=== PATIENT | male | born 1970 | race Caucasian/White ===

== ENCOUNTER → 2024-11-15 | Outpatient (CLI) | payer OTHER, SELFPAY ==
[2024-11-15 15:06] LABS: Absolute Lymphocyte Count 1.48 X10^3/uL (0.83-4.51); Absolute Neutrophil Count 3.4 X10^3/uL (2.0-7.7); Basophil# 0.04 X10^3/uL; Basophil% 0.7 % (0-1); Eosinophils% 1.8 % (0-5); Hemoglobin 17.7 g/dL (13.0-16.5); Lymphocyte # 1.48 X10^3/ul (0.83-4.51); Mean Corp Hgb Conc 35.4 g/dL (32-36); Mean Corpuscular Hgb 30.4 pg (27.0-32.0); Mean Corpuscular Volume 85.8 fL (80-94); Mean Platelet Vol. 9.8 fl (6.2-12.0); Monocyte% 7.3 % (0-10); NRBC Flagged by Analyzer 0 % (0-5); Neutrophil # 3.44 X10^3/uL (2.7-7.7); Neutrophil % 62.8 % (47-70); Platelet Count 231 K/mm3 (150-450); RBC Distribution Width CV 12.1 % (11.6-14.6); RBC Distribution Width SD 37.3 fl (35.1-43.9); RET-HE 34.7 pg (30-35); Red Blood Count 5.83 M/mm3 (4.6-6.2); Reticulocyte Count 1.54 % (0.5-1.5); White Blood Count 5.5 K/mm3 (4.4-11.0)
[2024-11-15 15:45] LABS: ALB/GLOB Ratio 1.6 RATIO (0.9-2.4); AST(SGOT) 27 U/L (<=37); Alanine Aminotransfer ALT/SGPT 57 U/L (<=46); Albumin, Serum 4.4 g/dL (3.5-5.0); Alkaline Phosphatase 122 U/L (40-129); Anion Gap 12 (5-15); BUN 19 mg/dL (4-19); BUN/Creat Ratio 23.8 RATIO (10-20); Calcium,Total 10.1 mg/dL (7.6-11.0); Chloride 102 mmol/L (98-108); Cholesterol 196 mg/dL (<=200); Creatinine, Serum 0.81 mg/dL (0.70-1.20); EST Glomerular Filtration Rate 104 (>60); Globulin 2.7 g/dL (2.2-4.2); Glucose 268 mg/dL (70-99); High Density Lipoprotein 54 mg/dL; Low Density Lipoprotein Calc. 112 mg/dL; Potassium 4.2 mmol/L (3.3-5.1); Sodium Level 136 mmol/L (133-145); Total Bilirubin 0.74 mg/dL (0.00-1.30); Triglycerides 149 mg/dL; Very Low Density Lipoprotein 30 mg/dL (5-40); cholesterol:hdl ratio screen 3.62
[2024-11-15 16:23] LABS: Iron 118 ug/dL (65-175); Iron Binding Capacity,Total 302 ug/dL (250-450); Iron Binding Capacity,Unsat 184 ug/dL (228-428)
[2024-11-15 16:25] LABS: Ferritin 272 ng/mL (37-417); PSA,Total - Annual Screen 1.24 ng/mL (0.02-4.00); Thyroid Stim Hormone (TSH) 0.956 uIU/mL (0.300-4.200)
[2024-11-17 04:07] LABS: GGTP 51 IU/L (0-65)
== END | disposition home or self-care (01) ==
LOC: MFPLAB 12:38
PROVIDERS: PCP Family Medicine; Referring Provider Family Medicine; Visit Provider Family Medicine
DX: C95.90 Leukemia, unspecified not having achieved remission (principal); E11.9 Type 2 diabetes mellitus without complications; K76.0 Fatty (change of) liver, not elsewhere classified; Z12.5 Encounter for screening for malignant neoplasm of prostate
CPT/HCPCS: 36415; 80053; 80061; 82728; 82977; 83540; 83550; 84153; 84403; 84443; 85025; 85045; G0103